=== PATIENT | female | born 1970 | race Caucasian/White ===

== ENCOUNTER 2019-02-13 10:07 | Outpatient (CLI) | payer OTHER | END 2019-02-13 10:08 | disposition home or self-care (01) | LOC: RAD 10:07 ==

== ENCOUNTER 2019-03-31 06:48 | Outpatient (CLI) | payer OTHER | END 2019-03-31 06:49 | disposition home or self-care (01) | LOC: CARDIO 06:48 ==

== ENCOUNTER 2019-04-02 08:08 | Outpatient (CLI) | payer OTHER | END 2019-04-02 08:09 | disposition home or self-care (01) | LOC: CARDIO 08:08 ==